=== PATIENT | female | born 1975 | race Hispanic/Latino ===

== ENCOUNTER 2017-10-05 12:55 | Emergency (ER) | payer OTHER ==
[~2017-10-05] VITALS: Ht 157.5 cm; Wt 91.6 kg
[~2017-10-05 12:55] MED LIST: CYCLOBENZAPRINE5 MG PO; MELOXICAM7.5 MG PO; ULTRAM 50MG50 MG PO
[2017-10-05] MEDS ORDERED: TRAMADOL HCL 50 MG TAB PO ONE (14:00)
[2017-10-05] MEDS ORDERED: CYCLOBENZAPRINE HCL 10 MG TAB PO ONE (14:00)
--- NOTE | 2017-10-05 14:46 | Diagnostic Imaging Report ---
CERVICAL SPINE 4 OR 5 VIEWS INDICATION: \S\r/o fx \[id number] \[id number] COMPARISON: None FINDINGS: Limited sensitivity for detection of subtle fractures and ligamentous abnormalities. On the lateral view, the cervical spine is visualized from the skull base to C7. The alignment is normal. No acute displaced fracture involving the visualized cervical spine. Disc Spaces and Uncovertebral Joints: Unremarkable. Facets: The facet joints are unremarkable. IMPRESSION: No acute radiographic abnormality. Signed by: DR. Darío Davidson MD on 10/05/2017 2:42 PM
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
== END 2017-10-05 16:03 | disposition home or self-care (01) ==
LOC: ER 12:55
DX: M54.2 Cervicalgia (principal); S16.1XXA Strain of muscle, fascia and tendon at neck level, initial encounter; M25.562 Pain in left knee; S80.02XA Contusion of left knee, initial encounter; V43.52XA Car driver injured in collision with other type car in traffic accident, initial encounter; Y92.488 Other paved roadways as the place of occurrence of the external cause
CPT/HCPCS: 72050; 99283